=== PATIENT | male | born 1950 | race Caucasian/White ===

== ENCOUNTER 2016-12-23 08:16 | Inpatient (IN) | payer OTHER ==
[2016-12-20 08:54] LABS: BASOPHILS # (AUTO) 0.1 K/uL (0.0-0.2); BASOPHILS % (AUTO) 1.4 % (0.0-2.0); EOSINOPHILS # (AUTO) 0.3 K/uL (0.0-0.4); EOSINOPHILS % (AUTO) 3.5 % (0.0-4.0); HEMATOCRIT 46.1 % (36-54); HEMOGLOBIN 14.7 g/dL (14.0-18.0); LYMPHOCYTES # (AUTO) 1.8 K/uL (1.0-5.5); MEAN CORPUSCULAR HEMOGLOBIN 28 pg (27-31); MEAN CORPUSCULAR HGB CONC 32 % (32-36); MEAN CORPUSCULAR VOLUME 89 fL (79.0-98.0); MONOCYTES # (AUTO) 0.6 K/uL (0.0-1.0); MONOCYTES % (AUTO) 6.9 % (1.7-9.3); NEUTROPHILS # (AUTO) 5.7 K/uL (1.8-7.7); NEUTROPHILS % (AUTO) 67.2 % (40.0-70.0); PLATELET COUNT (AUTO) 279 K/uL (130-430); RED BLOOD CELL COUNT(AUTO) 5.18 MIL/uL (4.2-6.2); RED CELL DISTRIBUTION WIDTH 13.8 % (9.0-15.0); WHITE BLOOD COUNT (AUTO) 8.5 K/uL (4.8-10.8)
[2016-12-20 09:05] LABS: CALCIUM 8.3 mg/dL (8.4-11.0); CREATININE 0.8 mg/dL (0.55-1.30); POTASSIUM 3.9 mmol/L (3.5-5.1)
[2016-12-20 09:10] LABS: INR 1.4 (0.80-1.20); PROTHROMBIN TIME 15.9 SECS (9.5-12.5)
[2016-12-20 10:57] LABS: BILIRUBIN,URINE NEGATIVE (NEGATIVE); BLOOD, URINE 2+ (NEGATIVE); CLARITY/URINE SL HAZY (CLEAR); COLOR,URINE YELLOW (YELLOW); GLUCOSE,URINE NEGATIVE (NEGATIVE); KETONES,URINE NEGATIVE (NEGATIVE); LEUKOCYTE ESTERASE ,URINE 1+ (NEGATIVE); NITRITE, URINE NEGATIVE (NEGATIVE); PROTEIN URINE NEGATIVE (NEGATIVE); UROBILINOGEN,URINE 0.2 (0.2-1.0)
[2016-12-20 11:26] LABS: RBC,URINE 20-50 /HPF (0-3)
[2016-12-20 11:27] LABS: BACTERIA,URINE MODERATE /HPF (None Seen)
[2016-12-20 11:29] LABS: MUCUS,URINE 2+ /LPF (None Seen)
[~2016-12-23] VITALS: Ht 165.1 cm; Wt 120.7 kg
[2016-12-23] MEDS ORDERED: CEFAZOLIN SOD 1 GM/ ISO 50 ML PREMIX IV ONE (09:30)
[2016-12-23] MEDS ORDERED: D5/0.45 NS 1,000 ML IV ONE (09:34)
[2016-12-23] MEDS ORDERED: ACETAMINOPHEN 325 MG TABLET PO PRN (09:45)
[2016-12-23] MEDS ORDERED: BISACODYL 10 MG/SUPPOSITORY RC PRN (09:45)
[2016-12-23] MEDS ORDERED: ROPIVACAINE HCL/PF 5 MG/ML 0.5% 30 ML VIAL INJ ONE (10:00)
[2016-12-23] MEDS ORDERED: BUPIVACAINE /EPINEPHRINE/PF 0.25% 30 ML VIAL INJ ONE (10:00)
[2016-12-23] MEDS ORDERED: TRANEXAMIC ACID 1,000 MG/10 ML VIAL IV ONE (10:00)
[2016-12-23] MEDS ORDERED: LIDOCAINE 1% 10 MG/ML, 20 ML MDV INJ ONE (10:00)
[2016-12-23] MEDS ORDERED: DEXAMETHASONE SOD PHOSPHATE 4 MG/ML VIAL IVP ONE (10:00)
[2016-12-23] MEDS ORDERED: DOXYCYCLINE HYCLATE 100 MG VIAL IV ONE (10:00)
[2016-12-23] MEDS ORDERED: ONDANSETRON HCL 4 MG/2 ML VIAL IVP ONE (10:00)
[2016-12-23] MEDS ORDERED: ROCURONIUM BROMIDE 10 MG/ML (ZEMURON) IV ONE (10:00)
[2016-12-23] MEDS ORDERED: NS 100 ML BAG IV ONE (10:00)
[2016-12-23] MEDS ORDERED: MIDAZOLAM HCL 5 MG/5 ML VIAL IVP ONE (10:00)
[2016-12-23] MEDS ORDERED: SEVOFLURANE 15 MIN GAS INH ONE (10:00)
[2016-12-23] MEDS ORDERED: fentaNYL CITRATE 250 MCG/5 ML AMP IV ONE (10:00)
[2016-12-23] MEDS ORDERED: KETOROLAC TROMETHAMINE 30 MG VIAL IVP ONE (10:00)
[2016-12-23] MEDS ORDERED: CEFAZOLIN 1 GM IVPB PREMIX 50 ML IV ONE (10:00)
[2016-12-23] MEDS ORDERED: SODIUM BICARBONATE 4% (NEUT) 5 ML VIAL INJ ONE (10:00)
[2016-12-23] MEDS ORDERED: LR 1,000 ML IV.SOLN IV ONE (10:00)
[2016-12-23] MEDS ORDERED: POLYMYXIN 500,000/BACIT.10,000 UNITS in NS IRR 1 L IR ONE (10:37)
[2016-12-23] MEDS ORDERED: WARF5TAB2 PO (11:09)
[2016-12-23] MEDS ORDERED: METO50TA7 PO (11:09)
[2016-12-23] MEDS ORDERED: ROPIVACAINE 0.2% 100 ML INJ SCH ×2 (11:33)
[2016-12-23] MEDS ORDERED: LR 1,000 ML IV SCH (11:33)
[2016-12-23] MEDS ORDERED: HYDROmorphone 2 MG/ML VIAL IVP PRN ×4 (11:45)
[2016-12-23] MEDS ORDERED: HYDROmorphone 1 MG INJ. 1 MG/ML AMPUL IVP PRN ×2 (11:45)
[2016-12-23] MEDS ORDERED: HYDROcodone/ACETAMIN 10-325 MG TAB PO PRN ×3 (11:45→14:30)
[2016-12-23] MEDS ORDERED: MEPERIDINE HCL/PF 25 MG/ML DISP.SYRIN IVP PRN ×2 (11:45)
[2016-12-23] MEDS ORDERED: ROPIVACAINE 0.2% 0 ML ONE (12:36)
[2016-12-23] MEDS: ROPIVACAINE 0.2% 100 ML INJ SCH ×2 (13:10→13:35)
[2016-12-23] MEDS ORDERED: ROPIVACAINE 0.2% 100 ML ONE (13:12)
[2016-12-23 14:30] VITALS: BP_SYST 142
[2016-12-23 16:17] VITALS: BP_SYST 142
[2016-12-23] MEDS: CEFAZOLIN 1 GM IVPB PREMIX 50 ML IV SCH ×2 (17:06→22:46)
[2016-12-23 17:19] VITALS: BP_SYST 114
[2016-12-23] MEDS: RIVAROXABAN 10 MG TABLET PO SCH (18:33)
[2016-12-23 18:35] VITALS: BP_SYST 148
[2016-12-23 20:00] VITALS: BP_SYST 138
[2016-12-24] VITALS: BP_SYST 127
[2016-12-24 04:10] VITALS: BP_SYST 156
[2016-12-24] MEDS: HYDROcodone/ACETAMIN 10-325 MG TAB PO PRN ×3 (04:42→21:49)
[2016-12-24] MEDS: ROPIVACAINE 0.2% 100 ML INJ SCH ×2 (05:04→19:56)
[2016-12-24 08:00] VITALS: BP_SYST 111
[2016-12-24 12:23] LABS: BASOPHILS # (AUTO) 0.1 K/uL (0.0-0.2); BASOPHILS % (AUTO) 1.2 % (0.0-2.0); EOSINOPHILS # (AUTO) 0.1 K/uL (0.0-0.4); EOSINOPHILS % (AUTO) 0.8 % (0.0-4.0); HEMATOCRIT 38.6 % (36-54); HEMOGLOBIN 13.1 g/dL (14.0-18.0); LYMPHOCYTES # (AUTO) 0.8 K/uL (1.0-5.5); MEAN CORPUSCULAR HEMOGLOBIN 30 pg (27-31); MEAN CORPUSCULAR HGB CONC 34 % (32-36); MEAN CORPUSCULAR VOLUME 89 fL (79.0-98.0); MONOCYTES % (AUTO) 8.1 % (1.7-9.3); NEUTROPHILS # (AUTO) 10.1 K/uL (1.8-7.7); NEUTROPHILS % (AUTO) 82.9 % (40.0-70.0); PLATELET COUNT (AUTO) 237 K/uL (130-430); RED BLOOD CELL COUNT(AUTO) 4.35 MIL/uL (4.2-6.2); RED CELL DISTRIBUTION WIDTH 13.4 % (9.0-15.0); WHITE BLOOD COUNT (AUTO) 12.1 K/uL (4.8-10.8)
[2016-12-24 12:41] LABS: CALCIUM 7.7 mg/dL (8.4-11.0); CREATININE 0.94 mg/dL (0.55-1.30); POTASSIUM 3.9 mmol/L (3.5-5.1)
[2016-12-24 12:42] VITALS: BP_SYST 126
[2016-12-24 12:46] LABS: ALBUMIN 2.9 g/dL (3.4-4.8); TOTAL BILIRUBIN 0.9 mg/dL (0.0-1.0); TOTAL PROTEIN, SERUM 6.7 g/dL (6.4-8.3)
[2016-12-24 16:22] VITALS: BP_SYST 114
[2016-12-24] MEDS: RIVAROXABAN 10 MG TABLET PO SCH (17:55)
[2016-12-24 20:07] VITALS: BP_SYST 112
[2016-12-25 00:44] VITALS: BP_SYST 121
[2016-12-25 04:00] VITALS: BP_SYST 126
[2016-12-25 08:00] VITALS: BP_SYST 123
[2016-12-25] MEDS: HYDROcodone/ACETAMIN 10-325 MG TAB PO PRN (08:41)
[2016-12-25 12:00] VITALS: BP_SYST 123
[2016-12-25] MEDS ORDERED: HYDROcodone/ACETAMIN 7.5-325 MG TAB PO PRN (13:00)
[2016-12-25] MEDS ORDERED: MORPHINE SULFATE 10 MG/ML VIAL IM PRN (13:00)
[2016-12-25 16:00] VITALS: BP_SYST 136
[2016-12-25 16:14] VITALS: BP_SYST 123
[2016-12-25] MEDS: RIVAROXABAN 10 MG TABLET PO SCH (17:55)
== END 2016-12-25 18:15 | disposition home or self-care (01) | DRG 470 ==
LOC: SMU 08:18 → STU 16:41 → SMU 12-25 14:25
PROVIDERS: ADMIT Orthopaedic Surgery; ATTEND Orthopaedic Surgery
PROC: 0SRD0J9 Replacement of Left Knee Joint with Synthetic Substitute, Cemented, Open Approach (ICD-10-PCS; principal; 2016-12-24)
DX: M17.12 Unilateral primary osteoarthritis, left knee (principal); Z68.41 Body mass index [BMI] 40.0-44.9, adult; I48.91 Unspecified atrial fibrillation; I10 Essential (primary) hypertension; E66.01 Morbid (severe) obesity due to excess calories; Z79.01 Long term (current) use of anticoagulants; Z79.899 Other long term (current) drug therapy
CPT/HCPCS: 36415; 71020-TC; 80048; 80053; 81000-TC; 85025; 85610-TC; 85730-TC; 87081; 87086; 87186-TC; 88305; 88311; 93005; 94010; 97039; 97110-GP; 97116-GP; 97530-GP; C1713; C1776; J0690; J1100; J1885; J2001; J2250; J2405; J2795; J3010; J3490; J7120